=== PATIENT | male | born 1990 | race American Indian/Alaskan Native ===

== ENCOUNTER 2017-11-02 01:05 | Emergency (ER) | payer SELFPAY | END 2017-11-02 01:15 | disposition left against medical advice (07) | LOC: ED 01:05 | DX: R51 Headache (principal); Z53.21 Procedure and treatment not carried out due to patient leaving prior to being seen by health care provider ==

== ENCOUNTER 2018-11-24 12:46 | Emergency (ER) | payer SELFPAY ==
[2018-11-24 13:05] VITALS: BP 157/83
--- NOTE | 2018-11-24 13:06 | Emergency Department Report ---
Chief Complaint: High BP Stated Complaint: HYPERTENSION Time Seen by Provider: 11/24/18 13:03 - HPI History of Present Illness: Pt took bp at [facility] and it was elevated no personal hx of HTN FHx HTN c/o lightheadedness over last couple of days MSE complete MSE screening note: Focused history and physical exam performed. Due to findings the following was ordered: ED Disposition for MSE Condition: Stable
--- NOTE | 2018-11-24 13:40 | Emergency Department Report ---
ED Recheck HPI - General Chief Complaint: High BP Stated Complaint: HYPERTENSION Time Seen by Provider: 11/24/18 13:03 Source: patient Mode of arrival: Ambulatory Limitations: No Limitations - History of Present Illness Initial Comments: Patient is a very pleasant 28-year-old male comes to the ER today after taking his blood pressure at the drugstore. The blood pressure was 175/98. Patient states that he got anxious and then felt lightheaded so he came to the emergency room. On arrival patient's blood pressure was 157/83. On exam patient has no headache no chest pain or shortness of breath. The patient is concerned because his mother has a long-standing history of hypertension and has had strokes. The patient has been using supplements to 80s weight loss over the past few weeks. We discussed stopping those. Patient HAS also changed his diet and lost 13 pounds since mid October. We discussed use of medicines and patient is going to continue with his weight loss for control of his blood pressure. Patient has been given information about the DASH diet and how to control his elevated blood pressure. - Related Data Allergies Allergy/AdvReac Type Severity Reaction Status Date / Time shellfish derived Allergy Swelling Verified 11/04/14 05:43 ED Review of Systems ROS: Stated complaint: HYPERTENSION Other details as noted in HPI Comment: All other systems reviewed and negative Constitutional: denies: see HPI Eyes: denies: eye pain ENT: denies: ear pain Respiratory: denies: cough Cardiovascular: denies: palpitations Endocrine: denies: flushing Gastrointestinal: denies: nausea Genitourinary: denies: urgency Musculoskeletal: denies: back pain Skin: denies: lesions Neurological: denies: headache, weakness Psychiatric: anxiety. denies: depression Hematological/Lymphatic: denies: easy bleeding ED Past Medical Hx - Past Medical History Additional medical history: OBESE - Surgical History Past Surgical History?: No - Family History Family history: hypertension - Social History Smoking Status: Never Smoker Substance Use Type: Alcohol ED Physical Exam - General Limitations: No Limitations General appearance: alert, in no apparent distress - Head Head exam: Present: atraumatic, normocephalic - Eye Eye exam: Present: normal appearance, PERRL, EOMI - ENT ENT exam: Present: mucous membranes moist - Neck Neck exam: Present: normal inspection - Respiratory Respiratory exam: Present: normal lung sounds bilaterally - Cardiovascular Cardiovascular Exam: Present: regular rate - GI/Abdominal GI/Abdominal exam: Present: soft, normal bowel sounds - Rectal Rectal exam: Present: deferred - Back Exam Back exam: Present: normal inspection, full ROM - Neurological Exam Neurological exam: Present: alert, oriented X3, CN II-XII intact, normal gait, reflexes normal - Psychiatric Psychiatric exam: Present: normal affect, normal mood, anxious - Skin Skin exam: Present: warm, dry, intact ED Course Vital Signs 11/24/18 13:03 Temperature 98.4 F Pulse Rate 65 Respiratory 18 Rate Blood Pressure 157/83 O2 Sat by Pulse 98 Oximetry ED Recheck MDM - Core Measures Measure Exclusions: not indicated - Medical Decision Making BP SLIGHTLY HIGH NO SYMPTOMS; NO HEADACHE/ NO CP/ NO SOB NO FOCAL NEURO DEF PT EDUCATED ON HOW TO CONTROL BP AND DC HOME WITH REFERRAL TO PCP FOR FOLLOW UP Critical care attestation.: If time is entered above; I have spent that time in minutes in the direct care of this critically ill patient, excluding procedure time. ED Disposition Clinical Impression: Elevated blood pressure reading, Obese Disposition: DC-01 TO HOME OR SELFCARE Is pt being admited?: No Does the pt Need Aspirin: No Condition: Stable Instructions: DASH Eating Plan (ED) Additional Instructions: DRINK A LOT OF WATER NO STIMULANTS CONTINUE TO WORK OUT FOLLOW UP WITH PCP REFERRAL BELOW AVOID SALT AND FRIED FOODS AVOID ALCOHOL AND SWEET DRINKS Referrals: COLLINS SÁNCHEZ MD [Staff Physician] - 3-5 Days Forms: Work/School Release Form(ED) Time of Disposition: 13:39
--- NOTE | 2018-11-24 14:18 | Emergency Department Report ---
- General Chief complaint: High BP Stated complaint: HYPERTENSION Time Seen by Provider: 11/24/18 13:03 Source: patient Mode of arrival: Ambulatory Limitations: No Limitations - Related Data Previous Rx's Medication Instructions Recorded Last Taken Type Cephalexin [Keflex] 500 mg PO TID 7 Days #21 capsule 11/24/18 Unknown Rx Allergies Allergy/AdvReac Type Severity Reaction Status Date / Time shellfish derived Allergy Swelling Verified 11/04/14 05:43 Abscess Boil HPI - HPI Chief Complaint: High BP Stated Complaint: HYPERTENSION Time Seen by Provider: 11/24/18 13:03 Home Medications: Previous Rx's Medication Instructions Recorded Last Taken Type Cephalexin [Keflex] 500 mg PO TID 7 Days #21 capsule 11/24/18 Unknown Rx Allergies/Adverse Reactions: Allergies Allergy/AdvReac Type Severity Reaction Status Date / Time shellfish derived Allergy Swelling Verified 11/04/14 05:43 ED Review of Systems ROS: Stated complaint: HYPERTENSION Other details as noted in HPI Constitutional: denies: see HPI Eyes: denies: eye pain ENT: denies: ear pain Respiratory: denies: cough Cardiovascular: denies: palpitations Endocrine: denies: flushing Gastrointestinal: denies: nausea Genitourinary: denies: urgency Musculoskeletal: denies: back pain Skin: denies: lesions Neurological: denies: headache, weakness Psychiatric: anxiety. denies: depression Hematological/Lymphatic: denies: easy bleeding ED Past Medical Hx - Past Medical History Additional medical history: OBESE - Surgical History Past Surgical History?: No - Social History Smoking Status: Never Smoker Substance Use Type: Alcohol - Medications Home Medications: Home Medications Medication Instructions Recorded Confirmed Last Taken Type Cephalexin [Keflex] 500 mg PO TID 7 Days #21 capsule 11/24/18 Unknown Rx ED Physical Exam - General Limitations: No Limitations General appearance: alert, in no apparent distress ED Course Vital Signs 11/24/18 13:03 Temperature 98.4 F Pulse Rate 65 Respiratory 18 Rate Blood Pressure 157/83 O2 Sat by Pulse 98 Oximetry Critical care attestation.: If time is entered above; I have spent that time in minutes in the direct care of this critically ill patient, excluding procedure time. ED Disposition Condition: Stable Instructions: DASH Eating Plan (ED) Additional Instructions: DRINK A LOT OF WATER NO STIMULANTS CONTINUE TO WORK OUT FOLLOW UP WITH PCP REFERRAL BELOW AVOID SALT AND FRIED FOODS AVOID ALCOHOL AND SWEET DRINKS Prescriptions: Cephalexin [Keflex] 500 mg PO TID 7 Days #21 capsule Referrals: COLLINS SÁNCHEZ MD [Staff Physician] - 3-5 Days Forms: Work/School Release Form(ED)
== END 2018-11-24 14:05 | disposition home or self-care (01) ==
LOC: ED 12:46
DX: I10 Essential (primary) hypertension (principal); E66.9 Obesity, unspecified; Z68.41 Body mass index [BMI] 40.0-44.9, adult; Z91.013 Allergy to seafood
CPT/HCPCS: 99282

== ENCOUNTER 2019-07-04 12:30 | Emergency (ER) | payer SELFPAY ==
[2019-07-04 12:40] VITALS: BP 138/76
--- NOTE | 2019-07-04 12:43 | Event Note ---
ED Screening Note Date of service: 07/04/19 Time: 12:38 ED Screening Note: 29 y/o male comes in for chest wall tenderness times 1 week. Has not taken anything for pain. Patient reports that a year ago he had chest pain and had an abnormal EKG. This initial assessment/diagnostic orders/clinical plan/treatment(s) is/are subject to change based on patients health status, clinical progression and re- assessment by fellow clinical providers in the ED. Further treatment and workup at subsequent clinical providers discretion. Patient/guardian urged not to elope from the ED as their condition may be serious if not clinically assessed and managed. Initial orders include:
--- NOTE | 2019-07-04 13:38 | XRay Report ---
CHEST 2 VIEWS INDICATION: chest pain. Chest pain over the left upper ribs today COMPARISON: None FINDINGS: Support devices: None. Heart: Within normal limits. Lungs/pleura: No acute air space or interstitial disease. No pneumothorax. Additional findings: None. IMPRESSION: 1. No acute findings. Signer Name: Floyd Adamson MD Signed: 07/04/2019 1:33 PM Workstation Name: [id number]
[2019-07-04 14:08] LABS: Basophils % (Auto) 0.7 % (0.0-1.8); Eosinophils # (Auto) 0.1 K/mm3 (0.0-0.4); Eosinophils % (Auto) 1.5 % (0.0-4.3); Hematocrit 39.8 % (35.5-45.6); Hemoglobin 13.4 gm/dl (11.8-15.2); Lymphocytes # (Auto) 2.3 K/mm3 (1.2-5.4); Lymphocytes % (Auto) 44.2 % (13.4-35.0); Mean Corpuscular HGB Conc 34 % (32-34); Mean Corpuscular Volume 82 fl (84-94); Monocytes # (Auto) 0.4 K/mm3 (0.0-0.8); Platelet Count 250 K/mm3 (140-440); Red Blood Count 4.87 M/mm3 (3.65-5.03); Red Cell Distribution Width 13.6 % (13.2-15.2)
--- NOTE | 2019-07-04 14:10 | Emergency Department Report ---
ED Chest Pain HPI - General Chief Complaint: Chest Pain Stated Complaint: CHEST PAIN/PAIN IN RIB CAGE Time Seen by Provider: 07/04/19 12:38 Source: patient Mode of arrival: Ambulatory Limitations: No Limitations - History of Present Illness Initial Comments: Eldon is a healthy 29-year-old male without significant past medical history who has pain in his left upper chest and ribs. Pain is felt when he moves his arm shoulder. Pain is also felt that a deep breath. Gradual onset of symptoms in the past week. Denies fever. Denies cough. Denies injury. He feels that the chest pain is due to working a lot. 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 He also is worried about his blood pressure. His mother has had 5 strokes. He also is worried about his kidneys because he drinks too many sodas according to his report. Complaint: chest pain -: Gradual, week(s) (1) Onset: during rest Pain Location: left chest Severity: mild Severity scale (0 -10): 5 Quality: dull Consistency: intermittent Improves With: nothing Worsens With: inspiration, movement - Related Data Previous Rx's Medication Instructions Recorded Last Taken Type Ibuprofen [Motrin 800 MG tab] 800 mg PO TID 5 Days #15 tablet 07/04/19 Unknown Rx Allergies Allergy/AdvReac Type Severity Reaction Status Date / Time shellfish derived Allergy Swelling Verified 11/04/14 05:43 Heart Score - HEART Score History: Slightly suspicious EKG: Normal Age: < 45 Risk factors: No known risk factors Troponin: < normal limit HEART Score: 0 ED Review of Systems ROS: Stated complaint: CHEST PAIN/PAIN IN RIB CAGE Other details as noted in HPI Comment: All other systems reviewed and negative Constitutional: denies: fever, malaise Respiratory: denies: cough, shortness of breath Cardiovascular: denies: chest pain ED Past Medical Hx - Past Medical History Previous Medical History?: No Additional medical history: OBESE - Surgical History Past Surgical History?: No - Family History Family history: hypertension - Social History Smoking Status: Never Smoker Substance Use Type: Alcohol - Medications Home Medications: Home Medications Medication Instructions Recorded Confirmed Last Taken Type Ibuprofen [Motrin 800 MG tab] 800 mg PO TID 5 Days #15 tablet 07/04/19 Unknown Rx ED Physical Exam - General Limitations: No Limitations General appearance: alert, in no apparent distress - Head Head exam: Present: atraumatic, normocephalic - Eye Eye exam: Present: normal appearance - ENT ENT exam: Present: mucous membranes moist - Neck Neck exam: Present: normal inspection, full ROM - Respiratory Respiratory exam: Present: normal lung sounds bilaterally, chest wall tenderness. Absent: respiratory distress, wheezes, rales, rhonchi, accessory muscle use, decreased breath sounds, prolonged expiratory - Cardiovascular Cardiovascular Exam: Present: regular rate, normal rhythm, normal heart sounds. Absent: systolic murmur, diastolic murmur, rubs, gallop - GI/Abdominal GI/Abdominal exam: Present: soft, normal bowel sounds. Absent: distended, tenderness, guarding, rebound - Rectal Rectal exam: Present: deferred - Extremities Exam Extremities exam: Present: normal inspection - Back Exam Back exam: Present: normal inspection - Neurological Exam Neurological exam: Present: alert, oriented X3 - Psychiatric Psychiatric exam: Present: normal affect, normal mood - Skin Skin exam: Present: warm, dry, intact, normal color. Absent: rash ED Course Vital Signs 07/04/19 12:38 Temperature 98.8 F Pulse Rate 69 Respiratory 18 Rate Blood Pressure 138/76 O2 Sat by Pulse 99 Oximetry ED Medical Decision Making - Lab Data Laboratory Results - last 24 hr 07/04/19 07/04/19 13:47 13:47 WBC 5.2 RBC 4.87 Hgb 13.4 Hct 39.8 MCV 82 L MCH 28 MCHC 34 RDW 13.6 Plt Count 250 Lymph % (Auto) 44.2 H Trego % (Auto) 7.0 Eos % (Auto) 1.5 Baso % (Auto) 0.7 Lymph # 2.3 Trego # 0.4 Eos # 0.1 Baso # 0.0 Seg Neutrophils % 46.6 Seg Neutrophils # 2.4 Sodium 142 Potassium 3.7 Chloride 102.6 Carbon Dioxide 26 Anion Gap 17 BUN 7 L Creatinine 0.8 Estimated GFR > 60 BUN/Creatinine Ratio 9 Glucose 86 Calcium 9.0 Troponin T < 0.010 - EKG Data EKG shows normal: sinus rhythm, axis, intervals, QRS complexes, ST-T waves Rate: normal - EKG Data Interpretation: no acute changes, normal EKG - Radiology Data Radiology results: report reviewed Chest x-ray PA and lateral: No acute process - Medical Decision Making Chest wall pain: PERC Negative for PE. No indication of pericarditis or pneumonia. CBC chemistry troponin all within normal limits. EKG chest x-ray normal. I provided referral to primary care physician. I strongly recommended a full physical. He receives work physicals through his company. Critical care attestation.: If time is entered above; I have spent that time in minutes in the direct care of this critically ill patient, excluding procedure time. ED Disposition Clinical Impression: Chest wall pain Disposition: - TO HOME OR SELFCARE Is pt being admited?: No Does the pt Need Aspirin: No Condition: Stable Instructions: Chest Pain (ED) Prescriptions: Ibuprofen [Motrin 800 MG tab] 800 mg PO TID 5 Days #15 tablet Referrals: BALJINDER PALMER MD [Staff Physician] - 3-5 Days Forms: Work/School Release Form(ED)
[2019-07-04 14:20] LABS: BUN/Creatinine Ratio 9; Blood Urea Nitrogen 7 mg/dL (9-20); Hemolysis Index 12
== END 2019-07-04 15:28 | disposition home or self-care (01) ==
LOC: ED 12:30
DX: R07.89 Other chest pain (principal)
CPT/HCPCS: 36415; 71046; 80048; 84484; 85025; 93005; 93010

== ENCOUNTER 2020-09-12 08:05 | Emergency (ER) | payer SELFPAY ==
[2020-09-12 08:59] VITALS: BP 147/86
--- NOTE | 2020-09-12 10:48 | Emergency Department Report ---
Chief Complaint: Dental/Oral Stated Complaint: LFT SIDE TOOTH BROKE/PAIN Time Seen by Provider: 09/12/20 10:40 - HPI History of Present Illness: Patient is a 30-year-old male presents emergency room with complaints of a broken tooth to the upper gumline that occurred earlier today. He states that he was eating something when the tooth cracked. He states he was supposed to have a root canal multiple months ago but did not follow back up with a dentist. He denies any fever, vomiting, diarrhea, chills, facial swelling, difficulty swallowing, difficulty breathing. No past medical history. No allergies medications. vss on exam: There is a dental carry with a hole present in the tooth on the right lower back molar, there is a large crack in a hole present in the tooth is loose presents to the left upper gumline, no edema or induration of the gumline, no f acial edema, no muffled voice, uvula is midline, no uvular edema or deviation, no trismus, no tongue elevation Patient is presenting for a dental carry and cracked tooth after chewing on something no injury There are no signs of infection Patient will be referred to a dentist, discussed the importance of dental follow-up with patient Discussed supportive care and symptomatic treatment with patient Discussed very strict return precautions Medical screen examination performed there is no threat to life or limb this time - Exam Vital Signs: Vital Signs 09/12/20 08:54 Temperature 98.2 F Pulse Rate 64 Respiratory 18 Rate Blood Pressure 147/86 O2 Sat by Pulse 99 Oximetry MSE screening note: Focused history and physical exam performed. Due to findings the following was ordered: ED Disposition for [facility] Clinical Impression: Toothache, Cracked tooth Disposition: Z-07 MED SCREENING EXAM-LEFT Is pt being admited?: No Does the pt Need Aspirin: No Condition: Stable Instructions: Tooth Injuries Additional Instructions: May alternate Tylenol then ibuprofen every 6-8 hours as needed for discomfort. Gargle with warm salt water 3-5 times a day. Increase your water intake. Follow-up with dentist. Is very importantly follow-up. Return to emergency room for new or worsening symptoms. Referrals: PRIMARY CARE, [Primary Care Provider] - 2-3 Days [facility] [Outside] - 2-3 Days [facility] [Outside] - 2-3 Days Time of Disposition: 10:48 Print Language: MAORI
== END 2020-09-12 10:57 | disposition left against medical advice (07) ==
LOC: ED 08:05
DX: K08.89 Other specified disorders of teeth and supporting structures (principal); Z53.21 Procedure and treatment not carried out due to patient leaving prior to being seen by health care provider

== ENCOUNTER 2020-11-21 16:21 | Emergency (ER) | payer SELFPAY ==
[2020-11-21 16:31] VITALS: BP 143/84
[2020-11-21] MEDS ORDERED: NEOMY 3.5 MG/BACIT 400 UNITS/POLY B 5000 UNITS/GM OINT PACKET TP ONE (17:01)
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
--- NOTE | 2020-11-21 17:32 | XRay Report ---
RIGHT ELBOW 2 VIEWS RIGHT WRIST 2 VIEWS INDICATION: Right elbow and right wrist pain. COMPARISON: No relevant prior imaging study available. FINDINGS: Right elbow: No acute, displaced fracture, dislocation, or joint effusion. No degenerative changes or significant soft tissue swelling. Right wrist: No acute, displaced fracture or dislocation is seen. Carpal alignment is normal. IMPRESSION: 1. No acute findings. Signer Name: Dileep Coats MD Signed: 11/21/2020 5:28 PM Workstation Name: [id number]
[2020-11-21] MEDS ORDERED: HYDROcodone/ACETAMINOPHEN 5-325 MG TAB PO ONE (17:38)
== END 2020-11-21 19:09 | disposition home or self-care (01) ==
LOC: ED 16:21
DX: T14.8XXA Other injury of unspecified body region, initial encounter (principal); M25.531 Pain in right wrist; E66.9 Obesity, unspecified; Z91.013 Allergy to seafood; Z79.899 Other long term (current) drug therapy; Z68.41 Body mass index [BMI] 40.0-44.9, adult; V49.49XA Driver injured in collision with other motor vehicles in traffic accident, initial encounter; Y92.410 Unspecified street and highway as the place of occurrence of the external cause; Y93.89 Activity, other specified; Y99.8 Other external cause status
CPT/HCPCS: 73070; 73100; 99283; A6250

== ENCOUNTER 2021-08-25 19:44 | Emergency (ER) | payer SELFPAY ==
[2021-08-25] MEDS ORDERED: ACETAMINOPHEN 325 MG TAB PO ONE (22:21)
[2021-08-25] MEDS ORDERED: IBUPROFEN 600 MG TAB PO ONE (22:21)
--- NOTE | 2021-08-26 02:56 | Emergency Department Report ---
ED General Adult HPI - General Chief complaint: Dental/Oral Stated complaint: ORAL PAIN Source: patient Mode of arrival: Ambulatory Limitations: No Limitations - History of Present Illness Initial comments: Patient is a 31-year-old -[place] male with no past medical history who presents to the ED with complaint of acute onset persistent severe painful swollen left mandibular gingiva with premolar molar toothache for the last 3 days, worse in the last 24 hours. Patient states that he has been taking Goody's powder as needed with no relief. Patient denies dizziness, syncope, nausea, vomiting, chest pain, shortness of breath, abdominal pain, cough, sore throat, diarrhea, dysuria, urinary frequency and urgency, headache or change in vision. MD Complaint: left mandibular premolar molar toothache; swollen left mandibular gingiva -: Sudden, days(s) (3) Location: mouth Radiation: non-radiation Severity scale (0 -10): 8 Quality: aching, sharp Consistency: constant Improves with: none Worsens with: eating Associated Symptoms: denies other symptoms, fever/chills. denies: confusion, chest pain, cough, diaphoresis, headaches, loss of appetite, malaise, nausea/vomiting, rash, seizure, shortness of breath, syncope, weakness Treatments Prior to Arrival: NSAID - Related Data Previous Rx's Medication Instructions Recorded Last Taken Type Amoxicillin/Potassium Clav 1 each PO BID 10 Days #20 tablet 04/24/20 Unknown Rx [Augmentin 875-125 Tablet] Cyclobenzaprine HCl [Flexeril 5 MG 5 mg PO TID #15 tab 11/21/20 Unknown Rx TAB] Ibuprofen [Motrin 800 MG tab] 800 mg PO TID #30 tablet 11/21/20 Unknown Rx cephALEXin [Keflex] 500 mg PO Q12HR #14 cap 11/21/20 Unknown Rx Amoxicillin/Potassium Clav 1 each PO Q12H #20 tablet 08/26/21 Unknown Rx [Augmentin 875-125 Tablet] Ibuprofen [Motrin] 800 mg PO Q8HR PRN #30 tablet 08/26/21 Unknown Rx traMADoL [Ultram] 50 mg PO Q6HR PRN #12 tablet 08/26/21 Unknown Rx Allergies Allergy/AdvReac Type Severity Reaction Status Date / Time shellfish derived Allergy Swelling Verified 11/04/14 05:43 ED Review of Systems ROS: Stated complaint: ORAL PAIN Other details as noted in HPI Constitutional: chills, fever, malaise Eyes: denies: eye pain, eye discharge, vision change ENT: dental pain (Left mandibular premolar and molar toothache), other (Swollen, painful left mandibular gingiva). denies: ear pain, throat pain Respiratory: denies: cough, shortness of breath, wheezing Cardiovascular: denies: chest pain, palpitations Endocrine: no symptoms reported Gastrointestinal: denies: abdominal pain, nausea, diarrhea Genitourinary: denies: urgency, dysuria Musculoskeletal: denies: back pain, joint swelling, arthralgia Skin: denies: rash, lesions Neurological: denies: headache, weakness, paresthesias Psychiatric: denies: anxiety, depression Hematological/Lymphatic: denies: easy bleeding, easy bruising ED Past Medical Hx - Past Medical History Additional medical history: OBESE - Social History Smoking Status: Never Smoker Substance Use Type: Alcohol - Medications Home Medications: Home Medications Medication Instructions Recorded Confirmed Last Taken Type Amoxicillin/Potassium Clav 1 each PO BID 10 Days #20 tablet 04/24/20 Unknown Rx [Augmentin 875-125 Tablet] Cyclobenzaprine HCl [Flexeril 5 MG 5 mg PO TID #15 tab 11/21/20 Unknown Rx TAB] Ibuprofen [Motrin 800 MG tab] 800 mg PO TID #30 tablet 11/21/20 Unknown Rx cephALEXin [Keflex] 500 mg PO Q12HR #14 cap 11/21/20 Unknown Rx Amoxicillin/Potassium Clav 1 each PO Q12H #20 tablet 08/26/21 Unknown Rx [Augmentin 875-125 Tablet] Ibuprofen [Motrin] 800 mg PO Q8HR PRN #30 tablet 08/26/21 Unknown Rx traMADoL [Ultram] 50 mg PO Q6HR PRN #12 tablet 08/26/21 Unknown Rx ED Physical Exam - General Limitations: No Limitations General appearance: alert, in no apparent distress - Head Head exam: Present: atraumatic, normocephalic, normal inspection - Eye Eye exam: Present: normal appearance, PERRL, EOMI Pupils: Present: normal accommodation - ENT ENT exam: Present: mucous membranes moist, TM's normal bilaterally, normal external ear exam, other (Swollen, severely tender left mandibular gingiva with severely tender left mandibular premolar and molar teeth) - Neck Neck exam: Present: normal inspection, full ROM. Absent: tenderness - Respiratory Respiratory exam: Present: normal lung sounds bilaterally. Absent: respiratory distress, wheezes, rales, rhonchi, chest wall tenderness, accessory muscle use, decreased breath sounds - Cardiovascular Cardiovascular Exam: Present: regular rate, normal rhythm, normal heart sounds. Absent: systolic murmur, diastolic murmur, rubs, gallop - GI/Abdominal GI/Abdominal exam: Present: soft, normal bowel sounds. Absent: tenderness, guarding, rebound, hyperactive bowel sounds, hypoactive bowel sounds, organomegaly, mass - Extremities Exam Extremities exam: Present: normal inspection, full ROM, normal capillary refill - Back Exam Back exam: Present: normal inspection, full ROM. Absent: tenderness, CVA tenderness (R), CVA tenderness (L), muscle spasm, paraspinal tenderness, vertebral tenderness - Neurological Exam Neurological exam: Present: alert, oriented X3, CN II-XII intact, normal gait, reflexes normal - Psychiatric Psychiatric exam: Present: normal affect, normal mood - Skin Skin exam: Present: warm, dry, intact, normal color. Absent: rash ED Course Vital Signs 08/25/21 08/25/21 08/26/21 22:18 22:25 03:21 Temperature 100.3 F H 98.2 F Pulse Rate 82 62 Respiratory 20 20 16 Rate Blood Pressure 150/88 134/82 [Right] O2 Sat by Pulse 100 10 L Oximetry ED Medical Decision Making - Medical Decision Making This is a 31-year-old -[place] male with no past medical history who presents to the ED with complaint of acute onset persistent severe painful swollen left mandibular gingiva with premolar molar toothache for the last 3 days, worse in the last 24 hours. Patient states that he has been taking Goody's powder as needed with no relief. In the ED, patient is alert and oriented x3 and is not in any distress. Patient is however slightly febrile in triage. Patient was treated for fever in the ED and on reevaluation, patient's pain and fever resolved medication. Patient will discharge home on antibiotics and pain medications and advised to follow-up with his dentist or primary care physician as previously scheduled in 3 days time. The oxygen saturation is 100% in room air. Patient was advised return to the ED immediately if symptoms get worse. - Differential Diagnosis Dental abscess; gingivitis; dental caries; Critical care attestation.: If time is entered above; I have spent that time in minutes in the direct care of this critically ill patient, excluding procedure time. ED Disposition Clinical Impression: Dental abscess, Dental caries, Acute gingivitis Disposition: 01 HOME / SELF CARE / HOMELESS Is pt being admited?: No Does the pt Need Aspirin: No Condition: Stable Instructions: Dental Abscess, [id number], Trench Mouth Additional Instructions: Take medication with food, drink plenty of fluids and follow-up with your primary care physician in 7 to 10 days for reevaluation. Return to the ED immediately if symptoms get worse. Prescriptions: Amoxicillin/Potassium Clav [Augmentin 875-125 Tablet] 1 each PO Q12H #20 tablet Ibuprofen [Motrin] 800 mg PO Q8HR PRN #30 tablet PRN Reason: Pain , Severe (7-10) traMADoL [Ultram] 50 mg PO Q6HR PRN #12 tablet PRN Reason: Pain Referrals: [facility] [Outside] - 3-5 Days Time of Disposition: 02:56 Print Language: PORTUGUESE
[2021-08-26 03:22] VITALS: BP 134/82
== END 2021-08-26 03:44 | disposition home or self-care (01) ==
LOC: ED 19:44
DX: K04.7 Periapical abscess without sinus (principal); K02.9 Dental caries, unspecified; K05.00 Acute gingivitis, plaque induced
CPT/HCPCS: 99282